=== PATIENT | female | born 1975 | race Caucasian/White ===

== ENCOUNTER 2024-03-13 04:54 | Outpatient (CLI) | payer SELFPAY ==
[2024-03-13 10:18] LABS: ESR 27 mm/hr (0-20)
[2024-03-13 10:19] LABS: Abs Immature Grans 0.01 10^3/uL (0.0-0.06); Absolute Basophil Count 0.12 10^3/uL (0.0-0.2); Absolute Eosinophil Count 0.34 10^3/uL (0.0-0.7); Absolute Lymphocyte Count 2.62 10^3/uL (1.2-3.4); Absolute Monocyte Count 0.44 10^3/uL (0.1-0.8); Basophils % 1.3 %; Eosinophils % 3.7 %; HCT 42.8 % (36.0-46.0); Immature Grans % 0.1 %; Lymphocytes % 28.7 %; MCH 28.1 pg (27.0-33.0); MCHC 32.7 % (32.0-36.0); MCV 86 fL (80-95); MPV 9.7 fL (8.0-11.0); Monocytes % 4.8 %; Neutrophils % 61.4 %; Platelet Count 322 10^3/uL (130-400); RBC 4.99 10^6/uL (3.93-5.22); RDW 12.7 % (11.7-14.6); RDW-SD 39.8 fL; WBC 9.13 10^3/uL (4.4-10.8)
[2024-03-13 11:18] LABS: ALT 48 U/L (14-59); AST 25 U/L (15-37); Albumin 3.9 g/dL (3.4-5.0); Alkaline Phosphatase 85 U/L (46-116); BUN 10 mg/dL (7-18); Bilirubin, Total 0.74 mg/dL (0.2-1.0); CREATININE 0.7 mg/dL (0.55-1.02); Calcium 8.7 mg/dL (8.5-10.1); Calculated LDL 125 mg/dL (<100); Chloride 106 mmol/L (98-107); Cholesterol 200 mg/dL (<200); Glucose 103 mg/dL (74-106); HDL Cholesterol 61 mg/dL (40-60); Sodium 142 mmol/L (136-145); TSH (W/Ref FT4) 2.14 uIU/mL (0.36-3.74); Triglyceride 74 mg/dL (<150); Vitamin B12 316 pg/mL (193-986); Vitamin D 25 Total 10.2 ng/mL (30-100)
[2024-03-13 22:08] LABS: Rheumatoid Factor <8.6 IU/mL (<12.0)
[2024-03-16 00:17] LABS: Anaplasma phagocytophilum Negative (Negative); B. miyamotoi PCR Negative (Negative); Babesia divergens/MO-1 Negative (Negative); Babesia duncani Negative (Negative); Babesia microti Negative (Negative); Ehrlichia chaffeensis Negative (Negative); Ehrlichia ewingii/canis Negative (Negative); Ehrlichia muris eauclairensis Negative (Negative)
[2024-03-21 16:05] LABS: ANA Interpretation Positive (Negative); Cyclic Citrullinated Peptide <2.5 U/mL (<5.0)
[2024-03-21 16:08] LABS: Lyme Ab w Rflx to Lyme Confirm Negative (Negative)
== END 2024-03-13 04:55 | disposition home or self-care (01) ==
PROVIDERS: PCP Nurse Practitioner; Visit Provider Nurse Practitioner
DX: M25.50 Pain in unspecified joint (principal); R53.83 Other fatigue; J45.909 Unspecified asthma, uncomplicated; I10 Essential (primary) hypertension
CPT/HCPCS: 36415; 80053; 80061; 82306; 85652; 86200; 87798; 82607; 84443; 85025; 86038; 86140; 86431; 86618